=== PATIENT | male | born 1995 | race Caucasian/White ===

== ENCOUNTER 2018-06-25 22:12 | Emergency (ER) | payer SELFPAY | END 2018-06-25 22:35 | disposition home or self-care (01) | LOC: ERS 22:12 | DX: S60.812A Abrasion of left wrist, initial encounter (principal); W59.19XA Other contact with nonvenomous snake, initial encounter | CPT/HCPCS: 99283 ==

== ENCOUNTER 2019-05-02 21:10 | Inpatient (IN) | payer BC, SELFPAY ==
[2019-05-02] MEDS ORDERED: Morphine 4 MG/ML VIAL ONE ×2 (21:30→23:10)
[2019-05-02] MEDS ORDERED: Ondansetron PF 4 MG/2 ML Vial ONE (21:43)
[2019-05-02 21:54] LABS: #Basophils 0.1 thou/uL (0.0-0.2); #Eosinphils 0.1 thou/uL (0.0-0.7); #Lymphocytes 2.4 thou/uL (1.20-3.40); #Monocytes 0.7 thou/uL (0.11-0.59); #Neutrophils 7.8 thou/uL (1.40-6.50); %Basophils 0.8 % (0.0-1.0); %Eosinophils 1.2 % (0.0-10.0); %Lymphocytes 21.4 % (21.0-51.0); %Monocytes 5.9 % (0.0-10.0); %Neutrophils 70.8 % (42.0-75.0); Hemoglobin 17.5 g/dL (14.0-18.0); Mean Corpuscular HGB CONC 34.9 g/dL (32.0-36.0); Mean Corpuscular Hemoglobin 31.6 pg (27.0-31.0); Mean Corpuscular Volume 90.5 fL (78.0-98.0); Mean Platelet Volume 8.1 fL (7.4-10.4); Platelet Count 243 thou/uL (130-400); RBC Distribution Width 11.2 % (11.5-14.5); Red Blood Cell (RBC) Count 5.54 mill/uL (4.70-6.10)
[2019-05-02 21:55] LABS: Prothrombin Time 13.6 SEC (12.0-14.7)
[2019-05-02 22:11] LABS: ALT (SGPT) 43 U/L (8-55); AST (SGOT) 23 U/L (5-34); Albumin 4.7 g/dL (3.5-5.0); Alkaline Phosphatase 82 U/L (40-110); Anion Gap 12 mmol/L (10-20); BUN (Urea Nitrogen) 17 mg/dL (8.9-20.6); Bilirubin, Total 0.7 mg/dL (0.2-1.2); Calc. Creatinine Clearance 0 mL/min (70-130); Calcium 9.7 mg/dL (7.8-10.44); Carbon Dioxide 24 mmol/L (22-29); Chloride 109 mmol/L (98-107); Estimated GFR-MDRD 85; Globulin 2.5 g/dL (2.4-3.5); Glucose 99 mg/dL (70-105); Potassium 3.5 mmol/L (3.5-5.1); Protein, Total 7.2 g/dL (6.0-8.3); Sodium 141 mmol/L (136-145)
--- NOTE | 2019-05-03 00:50 | PDOC.FPRHP ---
- History of Present Illness Chief Complaint: Snake bite History of Present Illness: Mr. Man is a 24yoM who presented to the ED for a snake bite. He reports he was catching a snake around 8pm and it bit the left index finger. While in the ED his pain was not well controlled and he began swelling more proximally, along his forearm. Reports that he pain was not lessened by any medications in the ER. Denies any fever, chills, abd pain, chest pain, SOB, palpitations, cough, congestion. Endorsed vision changes and nausea on presentation which has since resolved. Endorses some numbness on the tip of the L index finger; Denies numbness/tingling in L hand. ED Course: Zofran 4, Morphine 4mg x2, Fentanyl 50mcg, NS 1L. Crofab - Allergies/Adverse Reactions Allergies Allergy/AdvReac Type Severity Reaction Status Date / Time carbinoxamine [From [facility]] Allergy Verified 05/03/19 04:40 pseudoephedrine [From [facility]] Allergy Verified 05/03/19 04:40 - Home Medications Medication Instructions Recorded Confirmed Type No Known 05/03/19 05/03/19 History - History PMHx: tooth abscess PSHx: None FHx: Dad/Grandfather - CAD Social: Patient occasionally smoke cigarettes and drinks socially. Denies illicit drug use. - Review of Systems General: denies: fever/chills, weight/appetite/sleep changes, night sweats, fatigue Eyes: reports: vision changes ENT: denies: nasal congestion, rhinorrhea Respiratory: denies: cough, congestion, shortness of breath, exercise intolerance Cardiovascular: denies: chest pain, palpitation, edema Gastrointestinal: reports: nausea. denies: vomiting, diarrhea, constipation, abdominal pain Skin: reports: other (snake bite L index finger) Musculoskeletal: reports: pain, tenderness, stiffness, swelling. denies: arthritis/arthralgias Neurological: denies: weakness - Vital signs BP: 124/63, Pulse: 60, Resp: 15, Pain: 10, O2 sat: 98 on (Room Air), Time: 2019 23:19. Weight: 98kg - Physical Exam Constitutional: NAD, awake, alert and oriented, well developed HEENT: normocephalic and atraumatic, PERRLA, EOMI, no scleral icterus, grossly normal vision, grossly normal hearing, MMM Neck: supple, FROM, trachea midline Chest: no-tender to palpation, no lesions Heart: RRR, normal S1/S2, no murmurs/rubs/gallops, pulses present, no edema Lungs: CTAB, no respiratory distress, good air movement, no rales/rhonchi, no wheezing, no retractions Abdomen: soft, non-tender, bowel sounds present, no masses/distention, no hernias Neurological: no focal deficit Skin: no rash/lesions, good turgor, capillary refill <2 seconds -Skin: swelling to L hand/arm; discoloration to L index finger Heme/Lymphatic: no unusual bruising or bleeding Psychiatric: normal mood and affect, good judgment and insight, intact recent and remote memory FMR H&P: Results - Labs Result Diagrams: 05/03/19 01:50 05/03/19 01:50 Lab results: WBC 11.0 thou/uL (4.8-10.8) H 05/02/19 21:39 Hgb 17.5 g/dL (14.0-18.0) 05/02/19 21:39 Hct 50.1 % (42.0-52.0) 05/02/19 21:39 MCV 90.5 fL (78.0-98.0) 05/02/19 21:39 Plt Count 243 thou/uL (130-400) 05/02/19 21:39 Neutrophils % 70.8 % (42.0-75.0) 05/02/19 21:39 Sodium 141 mmol/L (136-145) 05/02/19 21:39 Potassium 3.5 mmol/L (3.5-5.1) 05/02/19 21:39 Chloride 109 mmol/L (98-107) H 05/02/19 21:39 Carbon Dioxide 24 mmol/L (22-29) 05/02/19 21:39 BUN 17 mg/dL (8.9-20.6) 05/02/19 21:39 Creatinine 1.06 mg/dL (0.7-1.3) 05/02/19 21:39 Glucose 99 mg/dL (70-105) 05/02/19 21:39 Calcium 9.7 mg/dL (7.8-10.44) 05/02/19 21:39 Total Bilirubin 0.7 mg/dL (0.2-1.2) 05/02/19 21:39 AST 23 U/L (5-34) 05/02/19 21:39 ALT 43 U/L (8-55) 05/02/19 21:39 Alkaline Phosphatase 82 U/L (40-110) 05/02/19 21:39 Creatine Kinase 164 U/L (30-200) 05/02/19 21:36 Serum Total Protein 7.2 g/dL (6.0-8.3) 05/02/19 21:39 Albumin 4.7 g/dL (3.5-5.0) 05/02/19 21:39 FMR H&P: A/P - Problem List (1) Snake envenomation Current Visit: Yes Status: Acute Code(s): T63.001A - TOXIC EFFECT OF UNSP SNAKE VENOM, ACCIDENTAL, INIT - Plan Snake envenomination, coperhead - Patient receiving Crofab - Continue to monitor swelling - Place in splint and elevate - Tylenol and Morphine for pain. - Will monitor with serial labs after initiation of crofab. Dispo: stable Diet: Reg Code status: FULL PCP: none FMR H&P: Upper Level - Plan Date/Time: 05/03/1948 IMacie MD, have evaluated this patient and agree with findings/plan as outlined by undergraduate internship resident. Pertinent changes/additions are listed here. HPI: This is a 24yo M with no significant PMH who presented to the ER after a copper head snake bite that occurred around 8pm. The patient was moving the snake out of the road when it bit him on his left index finger. The patient noted pain and swelling to the area and decided to come to the ER. The patient noted blurred vision and nausea when he came to the ER which has now resolved. He states that the pain medication he has received has not helped with the pain in his left hand. See undergraduate internship note for full HPI and histories. PE: General: NAD, well developed HEENT: NC/AT, PERRL, EOMI Cardio: RRR, no murmurs, rubs, gallops Resp: CTAB, symmetrical chest rise, no distress MSK: ROM nml in b/l upper extremities; swelling noted to L upper extremity, worse in hand/wrist; marked at the level of the wrist; limited flexion of L index finger; blue/black bullae noted at tip of L index finger Skin exam: See above Psych: axox3 Plan: Snake Envenomination - Crotalinae Patient bit by copper head around 8pm on 05/01 with increased pain and swelling to L hand. - Will admit to medical - Will treat with crofab - frequent monitoring - Monitor swelling to L upper extremity, will place in splint, elevate arm to help with swelling, cleanse wound with antiseptic solution - Repeat CBC, CMP, coags, CK in the AM - Morphine for pain control Diet: reg VTE: SCDs Code: FULL Addendum - Attending - Attending Attestation Date/Time: 05/03/19 [id number] I personally evaluated the patient and discussed the management with Dr. Meek/ Jann I agree with the History, Examination, Assessment and Plan documented above with any addition or exceptions noted below. 24 yo WM no PMH. Presents with copperhead bite to distal left third digit that occurred at approximately 2000 on 05/01. Had swelling initially beyond left wrist. Given crofab in ER. Labs unremarkable. exam showed swelling below left wrist on my examination. repeat coag negative. Admit for snake envenomation. Monitor swelling off crofab. inpatient, medial, >2 midnights.
[2019-05-03] MEDS ORDERED: Fentanyl 100 MCG/2 ML VIAL ONE (01:10)
[2019-05-03] MEDS ORDERED: Acetaminophen 325 MG TAB PO PRN (01:20)
[2019-05-03] MEDS ORDERED: Ondansetron ODT 4 MG TAB PO PRN (01:20)
[2019-05-03] MEDS ORDERED: Crotalidae Polyvlnt Antivenin 4 GM in Sodium Chloride 0.9% 250 ML 250 ML IVPB SCH ×2 (01:30→23:00)
[2019-05-03] MEDS ORDERED: Morphine 2 MG/ML SYRINGE SLOW IVP PRN (01:37)
[2019-05-03 01:56] LABS: #Basophils 0.1 thou/uL (0.0-0.2); #Eosinphils 0.1 thou/uL (0.0-0.7); #Lymphocytes 1.4 thou/uL (1.20-3.40); #Monocytes 0.9 thou/uL (0.11-0.59); #Neutrophils 15.1 thou/uL (1.40-6.50); %Basophils 0.3 % (0.0-1.0); %Eosinophils 0.3 % (0.0-10.0); %Lymphocytes 7.9 % (21.0-51.0); %Monocytes 5.1 % (0.0-10.0); %Neutrophils 86.5 % (42.0-75.0); Hemoglobin 17.6 g/dL (14.0-18.0); Mean Corpuscular HGB CONC 35.4 g/dL (32.0-36.0); Mean Corpuscular Hemoglobin 32.3 pg (27.0-31.0); Mean Corpuscular Volume 91.2 fL (78.0-98.0); Mean Platelet Volume 8.2 fL (7.4-10.4); Platelet Count 224 thou/uL (130-400); RBC Distribution Width 11.3 % (11.5-14.5); Red Blood Cell (RBC) Count 5.46 mill/uL (4.70-6.10); White Blood Cell (WBC) Count 17.5 thou/uL (4.8-10.8)
[2019-05-03 02:04] LABS: INR-International Normal Ratio 1.1
[2019-05-03 02:27] LABS: ALT (SGPT) 39 U/L (8-55); AST (SGOT) 22 U/L (5-34); Albumin 4.4 g/dL (3.5-5.0); Alkaline Phosphatase 77 U/L (40-110); Anion Gap 12 mmol/L (10-20); BUN (Urea Nitrogen) 18 mg/dL (8.9-20.6); Bilirubin, Total 0.6 mg/dL (0.2-1.2); CK (CPK) 136 U/L (30-200); Calc. Creatinine Clearance 0 mL/min (70-130); Calcium 9.1 mg/dL (7.8-10.44); Carbon Dioxide 24 mmol/L (22-29); Chloride 109 mmol/L (98-107); Estimated GFR-MDRD 82; Globulin 2.4 g/dL (2.4-3.5); Glucose 133 mg/dL (70-105); Potassium 3.6 mmol/L (3.5-5.1); Protein, Total 6.8 g/dL (6.0-8.3); Sodium 141 mmol/L (136-145)
[2019-05-03] MEDS: Morphine 4 MG/ML VIAL SLOW IVP PRN ×4 (02:27→19:38)
[2019-05-03 06:16] VITALS: BMI 31.8
--- NOTE | 2019-05-03 07:30 | RAD ---
Exam:Left index finger 3 views HISTORY: Evaluate foreign body. COMPARISON: None FINDINGS: Soft tissue swelling. Soft tissue defect compatible with soft tissue injury. No radiopaque foreign body. No fracture. IMPRESSION: Soft tissue swelling. No radiopaque foreign body or fracture.
[2019-05-03 12:27] LABS: Bacteria/HPF None Seen HPF (None Seen); Bilirubin Negative (Negative); Blood, Urine Negative (Negative); Clarity Clear (Clear); Glucose, Urine (Dipstick) Normal (Negative); Leukocyte Negative Leu/uL (Negative); Nitrite Negative (Negative); Protein, Urine (Dipstick) 20 mg/dL (Neg-Trace); RBC/HPF 0-3 HPF (0-3); Squamous Epithelial None Seen HPF (0-3); Urobilinogen Normal mg/dL (Less than 2); WBC/HPF 0-3 HPF (0-3)
[2019-05-03] MEDS ORDERED: Ketorolac Tromethamine 30 MG/ML VIAL IVP SCH (20:15)
[2019-05-03 22:07] LABS: Prothrombin Time 13.2 SEC (12.0-14.7)
[2019-05-03 22:08] LABS: PTT 27.3 SEC (22.9-36.1)
--- NOTE | 2019-05-04 06:39 | PDOC.FM ---
- Subjective Subjective: He was experiencing more pain last night. His arm was significantly more swollen last night. He says it has improved since the Crofab was re-started. He has pain more in the hand than in the arm. he is able to move the arm and hand. - Objective MAR Reviewed: Yes Vital Signs & Weight: Vital Signs (12 hours) Temp Pulse Resp BP Pulse Ox 05/04/19 03:35 97.8 F 66 18 111/64 97 05/04/19 00:07 98.4 F 63 18 125/78 98 05/03/19 20:00 98 Weight Weight 98 kg I&O: 05/02/19 05/03/19 05/04/19 06:59 06:59 06:59 Intake Total 394 700 Balance 394 700 Result Diagrams: 05/04/19 08:50 05/03/19 01:50 Phys Exam - Physical Examination Constitutional: NAD HEENT: moist MMs, sclera anicteric, oral pharynx no lesions Neck: no nodes, supple Respiratory: no wheezing, no rales, no rhonchi, clear to auscultation bilateral Cardiovascular: RRR, no significant murmur, no rub Gastrointestinal: soft, non-tender, positive bowel sounds Musculoskeletal: no edema, pulses present Neurological: moves all 4 limbs Lymphatic: no nodes Psychiatric: normal affect Skin: no rash, normal turgor Dx/Plan (1) Snake envenomation Code(s): T63.001A - TOXIC EFFECT OF UNSP SNAKE VENOM, ACCIDENTAL, INIT Status : Acute - Plan Plan: Pt is a 24yo M with no significant PMH who presented to the ER after a copper head snake bite that occurred around 8pm. 1.Snake Envenomination, copperhead (Crotalinae) Patient bit by copper head around 8pm on 05/01 with increased pain and swelling to L hand. * Patient received Crofab 4 vials x2 * 2nd Dose is still running * Continue to monitor swelling * Place in splint and elevate * Tylenol and Morphine for pain. * Rechecking Coag panels this morning, Fibronogen is elevated * Called [place] [facility] this morning. ([phone]) Diet: Reg Activity: As Tolerated DVT Ppx: SCDs PCP: None Dispo: Med obs, LOS <48H. Will continue to monitor swelling. Will give maintenance dosing today. Addendum - Attending - Attending Attestation Date/Time: 05/04/19 2760 I personally evaluated the patient and discussed the management with Dr. Goldman I agree with the History, Examination, Assessment and Plan documented above with any addition or exceptions noted below. Restarted antivenom. continue for 24 hrs. repeat labs per protocol. TD given today. likely d/c tomorrow.
[2019-05-04 07:46] LABS: PTT 29.2 SEC (22.9-36.1)
[2019-05-04 08:56] LABS: #Basophils 0.1 thou/uL (0.0-0.2); #Eosinphils 0.3 thou/uL (0.0-0.7); #Lymphocytes 2.4 thou/uL (1.20-3.40); #Monocytes 0.9 thou/uL (0.11-0.59); #Neutrophils 5.3 thou/uL (1.40-6.50); %Basophils 0.8 % (0.0-1.0); %Eosinophils 3.1 % (0.0-10.0); %Monocytes 9.9 % (0.0-10.0); %Neutrophils 59.3 % (42.0-75.0); Hemoglobin 16.9 g/dL (14.0-18.0); Mean Corpuscular HGB CONC 33.7 g/dL (32.0-36.0); Mean Corpuscular Hemoglobin 30.5 pg (27.0-31.0); Mean Corpuscular Volume 90.6 fL (78.0-98.0); Mean Platelet Volume 7.8 fL (7.4-10.4); Platelet Count 192 thou/uL (130-400); RBC Distribution Width 11.2 % (11.5-14.5); Red Blood Cell (RBC) Count 5.53 mill/uL (4.70-6.10); White Blood Cell (WBC) Count 8.9 thou/uL (4.8-10.8)
[2019-05-04] MEDS ORDERED: Ibuprofen 800 MG TAB PO PRN (11:09)
[2019-05-04] MEDS ORDERED: Morphine 2 MG/ML SYRINGE SLOW IVP PRN (11:11)
[2019-05-04] MEDS ORDERED: TETANUS AND DIPHTHERIA TOX/PF 0.5 ML DISP.SYRIN IM ONE (11:12)
[2019-05-04] MEDS: Crotalidae Polyvlnt Antivenin 2 GM in Sodium Chloride 0.9% 250 ML 250 ML IVPB SCH ×2 (15:26→20:27)
[2019-05-05] MEDS: Crotalidae Polyvlnt Antivenin 2 GM in Sodium Chloride 0.9% 250 ML 250 ML IVPB SCH (03:17)
--- NOTE | 2019-05-05 07:04 | PDOC.FM ---
- Subjective Subjective: He feels well this morning. The only pain he has is in his finger this morning. He is eating and able to walk around and use the restroom without any issues. - Objective MAR Reviewed: Yes Vital Signs & Weight: Vital Signs (12 hours) Temp Pulse Resp BP Pulse Ox 05/05/19 03:22 98.1 F 65 16 120/74 97 05/04/19 23:38 98.2 F 75 18 124/68 97 05/04/19 20:00 98 05/04/19 19:28 98.2 F 75 18 119/62 96 Weight Weight 98 kg I&O: 05/04/19 05/05/19 05/06/19 06:59 06:59 06:59 Intake Total 700 Balance 700 Result Diagrams: 05/04/19 08:50 05/03/19 01:50 Phys Exam - Physical Examination Constitutional: NAD HEENT: PERRLA, sclera anicteric, oral pharynx no lesions Neck: no nodes, supple Respiratory: no wheezing, no rales, no rhonchi, clear to auscultation bilateral Cardiovascular: RRR, no significant murmur, no rub Gastrointestinal: soft, non-tender, positive bowel sounds Musculoskeletal: no edema, pulses present Neurological: moves all 4 limbs Lymphatic: no nodes Psychiatric: normal affect Skin: no rash, normal turgor Dx/Plan (1) Snake envenomation Code(s): T63.001A - TOXIC EFFECT OF UNSP SNAKE VENOM, ACCIDENTAL, INIT Status : Acute - Plan Plan: Pt is a 24yo M with no significant PMH who presented to the ER after a copper head snake bite that occurred around 8pm. 1.Snake Envenomination, copperhead (Crotalinae) Patient bit by copper head around 8pm on 05/01 with increased pain and swelling to L hand. * Patient received Crofab 4 vials x2 * Maintenance 2 gm x3 doses, last one will be at 9 this morning * Continue to monitor swelling * Place in splint and elevate * Tylenol and Morphine for pain. * Rechecking labs this morning with cbc, PT/PTT/INR, and fibrinogen * Fibrinogen should be low in the case of a snake bite * Called [place] [facility] this morning. ([phone]) Diet: Reg Activity: As Tolerated DVT Ppx: SCDs PCP: None Dispo: Med obs, LOS <48H. Likely d/c this afternoon pending labs. Addendum - Attending - Attending Attestation Date/Time: 05/05/19 1033 I personally evaluated the patient and discussed the management with Dr. Goldman I agree with the History, Examination, Assessment and Plan documented above with any addition or exceptions noted below. OT to evaluate. repeat Coags and CBC at 1200. If WNL d/c home today. Overall improving without return of symptoms.
--- NOTE | 2019-05-05 11:03 | EKG ---
Test Reason : Blood Pressure : / mmHG Vent. Rate : 049 BPM Atrial Rate : 049 BPM P-R Int : 126 ms QRS Dur : 076 ms QT Int : 388 ms P-R-T Axes : 032 007 015 degrees QTc Int : 350 ms Marked sinus bradycardia Abnormal ECG Confirmed by CHELSI OSEI MD ([id number]), online content editor TANGELA GENTILE ([id number]) on 05/05/2019 11:03:08 AM Referred By: Confirmed By:CHELSI OSEI MD
[2019-05-05 12:05] LABS: #Eosinphils 0.3 thou/uL (0.0-0.7); #Lymphocytes 1.8 thou/uL (1.20-3.40); #Monocytes 0.6 thou/uL (0.11-0.59); #Neutrophils 5.4 thou/uL (1.40-6.50); %Basophils 0.4 % (0.0-1.0); %Eosinophils 3.7 % (0.0-10.0); %Lymphocytes 21.7 % (21.0-51.0); %Monocytes 7.4 % (0.0-10.0); %Neutrophils 66.9 % (42.0-75.0); Hemoglobin 16.9 g/dL (14.0-18.0); Mean Corpuscular HGB CONC 34.7 g/dL (32.0-36.0); Mean Corpuscular Hemoglobin 30.8 pg (27.0-31.0); Mean Corpuscular Volume 88.7 fL (78.0-98.0); Mean Platelet Volume 8.3 fL (7.4-10.4); Platelet Count 208 thou/uL (130-400); RBC Distribution Width 10.9 % (11.5-14.5); Red Blood Cell (RBC) Count 5.48 mill/uL (4.70-6.10); White Blood Cell (WBC) Count 8.1 thou/uL (4.8-10.8)
[2019-05-05 12:21] LABS: PTT 29.4 SEC (22.9-36.1); Prothrombin Time 13.6 SEC (12.0-14.7)
[2019-05-05 13:53] VITALS: BP 121/65; TEMP 98.1
--- NOTE | 2019-05-05 15:29 | DIS ---
DATE OF ADMISSION: 05/03/2019 DATE OF DISCHARGE: 05/05/2019 DISCHARGE ATTENDING PHYSICIAN: Lupillo Reyes MD CONSULTATIONS: None. PROCEDURES: 1. EKG, sinus mojgan. 2. Finger x-ray on 05/03/2019 showed soft tissue swelling. No radiopaque foreign body or stricture. PRIMARY DIAGNOSIS: Snake envenomation. SECONDARY DIAGNOSIS: None. DISCHARGE MEDICATIONS: 1. Ibuprofen 100 mg p.o. q.8 hours p.r.n. for pain. DISCONTINUED MEDICATIONS: 1. CroFab 2. Zofran 3. Morphine 4. Tylenol HISTORY OF PRESENT ILLNESS: Mr. Man is a 24-year-old male, who presented to the ED for a snake bite. He reports he was catching a snake around 8 p.m. and it bit the left index finger. On the ED, his pain was not well controlled and he began swelling more proximally along the forearm. He reports that his pain was not lessened by any medication in the ER. Denies any fevers, chills, abdominal pain, chest pain, shortness of breath, palpitations, cough, or congestion. He endorsed vision changes and nausea on presentation, which has since resolved. He endorses some numbness on the tip of the left index finger. Denies numbness or tingling in the hand. In the ED, he was given Zofran 4 mg, morphine 4 mg x2, fentanyl 50 mcg, normal saline 1 L, and four vials of CroFab. 1. One snake envenomation, copperhead, crotaline The patient was bit by copperhead around 8 p.m. on 05/01 with increased pain and swelling to the left hand. * Received CroFab four vials x2 and maintenance two vials x3 doses while overnight * Labs were normal * Tylenol and morphine were used during hospital stay and converted to Tylenol and ibuprofen before discharge. * Called [place] [facility] and they agreed with current plan. DISPOSITION: Stable. DISCHARGE INSTRUCTIONS: 1. Location: Home. 2. Activity: As tolerated. 3. Diet: Regular. 4. Followup with [facility] in 7 days. Job ID: [id number] [id number]
== END 2019-05-05 16:00 | disposition home or self-care (01) | DRG 918 ==
LOC: ERS 21:10 → SURG A 05-03 00:56 → OBSVTOIN 05-03 00:56
PROVIDERS: ADMIT Family Medicine; ATTEND Family Medicine
DX: T63.091A Toxic effect of venom of other snake, accidental (unintentional), initial encounter (principal); Z82.49 Family history of ischemic heart disease and other diseases of the circulatory system; F17.210 Nicotine dependence, cigarettes, uncomplicated; R00.1 Bradycardia, unspecified; Y92.89 Other specified places as the place of occurrence of the external cause
CPT/HCPCS: 36415; 36416; 80053; 81001; 82550; 85025; 85379; 85384; 85610; 85730; 86850; 86900; 86901; 90714; 93005; 96361; 96374; 96375; 96376; 99406; J0840; J1885; J2270; J2405; J3010; J7050